=== PATIENT | male | born 2000 | race Caucasian/White ===

== ENCOUNTER 2021-07-24 15:15 | Emergency (ER) | payer OTHER ==
[2021-07-24] MEDS ORDERED: IBUPROFEN400 MG PO (16:30)
[2021-07-24] MEDS ORDERED: BACTROBAN OINT22 GM EXT (16:30)
== END 2021-07-24 16:40 | disposition home or self-care (01) ==
LOC: ER1 15:15
DX: S60.032A Contusion of left middle finger without damage to nail, initial encounter (principal); S60.042A Contusion of left ring finger without damage to nail, initial encounter; W23.0XXA Caught, crushed, jammed, or pinched between moving objects, initial encounter; Z23 Encounter for immunization
CPT/HCPCS: 29130; 73130; 90715; 99283